=== PATIENT | male | born 1960 | race Hispanic/Latino ===

== ENCOUNTER 2018-08-05 07:01 | Emergency (ER) | payer BC, OTHER ==
[2018-08-05 07:44] LABS: Absolute Lymphocytes (CBC) 1.3 K/uL (0.7-4.9); Absolute Monocytes 0.4 K/uL (0.1-1.3); Basophils % 0.8 % (0-1.3); Eosinophils % 5.5 % (0-4.4); Hematocrit 42.1 % (39.6-49.0); Lymphocytes % 32.6 % (15.3-44.8); MPV 8.9 fL (7.6-11.3); RBC Red Blood Cell Count 4.54 M/uL (4.33-5.43)
[2018-08-05 07:51] LABS: Protime INR 1.05
[2018-08-05 08:05] LABS: ALT/SGPT 35 U/L (12-78); AST/SGOT 19 U/L (15-37); Albumin 4.1 g/dL (3.4-5.0); Alkaline Phosphatase 60 U/L (45-117); BUN Blood Urea Nitrogen 19 mg/dL (7-18); Bicarbonate 29 mmol/L (21-32); Bilirubin Direct 0.2 mg/dL (0-0.2); Bilirubin Total 0.8 mg/dL (0.2-1.0); Glucose Level 96 mg/dL (74-106); Magnesium 2.1 mg/dL (1.8-2.4); NT PRO-BNP 54 pg/mL (<125); Potassium 3.9 mmol/L (3.5-5.1); Protein, Total 7.4 g/dL (6.4-8.2); Sodium Level 142 mmol/L (136-145); Troponin (Emerg Dept Use Only) < 0.02 ng/mL (0.0-0.045)
--- NOTE | 2018-08-05 08:07 | EKG ---
Test Date: 2018-08-05 Test Time: 07:25:15 Senior Property Accountant: CHRISTINE MEASUREMENT RESULTS: Intervals: Rate: 59 AK: 138 QRSD: 86 QT: 428 QTc: 423 Mize: P: 38 AK: 138 QRS: -24 T: 29 INTERPRETIVE STATEMENTS: Sinus bradycardia Otherwise normal ECG No previous ECG available for comparison Electronically Signed On 08-05-18 08:06:29 CAREER RESOURCE SPECIALIST by Jose Alfredo Means
--- NOTE | 2018-08-05 08:29 | RAD REPORT ---
EXAM DESCRIPTION: RAD - Chest Single View - 08/05/2018 7:33 am CLINICAL HISTORY: Shortness of breath COMPARISON: None. TECHNIQUE: AP portable chest image was obtained 0730 hours . FINDINGS: Lungs are clear. Heart and vasculature are normal. No measurable pleural effusion and no p neumothorax. No acute bony abnormality seen. No acute aortic findings suspected. IMPRESSION: No acute cardiopulmonary process.
--- NOTE | 2018-08-05 08:59 | ER ---
Nurse's Notes [facility] Name: Shoaib Rosario Age: 58 yrs Sex: Male : 1960 Arrival Date: 08/05/2018 Time: 07:02 Bed 13 Private MD: Isauro Garcia H Diagnosis: Dizziness;Shortness of breath Presentation: 08/05 07:16 Presenting complaint: Patient states: WOKE UP AND DON'T FEEL WELL. I DON'T FEEL RESTED ls4 AND FELT SHORT OF BREATH. Transition of care: patient was not received from another setting of care. Onset of symptoms was July 30, 2018. Risk Assessment: Do you want to hurt yourself or someone else? Patient reports no desire to harm self or others. Initial Sepsis Screen: Does the patient meet any 2 criteria? No. Patient's initial sepsis screen is negative. Does the patient have a suspected source of infection? No. Patient's initial sepsis screen is negative. Care prior to arrival: None. 07:16 Method Of Arrival: Ambulatory ls4 07:16 Acuity: EFREN 3 ls4 Triage Assessment: 07:19 General: Appears in no apparent distress. Behavior is calm, cooperative. Pain: Denies ls4 pain. Neuro: No deficits noted. Cardiovascular: No deficits noted. Respiratory: Reports shortness of breath since THURSDAY Onset: The symptoms/episode began/occurred gradually, the patient has mild shortness of breath. GI: No deficits noted. : No deficits noted. Derm: No deficits noted. Musculoskeletal: No deficits noted. Historical: - Allergies: 07:19 No Known Allergies; ls4 - Home Meds: 07:19 None [Active]; ls4 - PMHx: 07:19 None; ls4 - PSHx: 07:19 None; ls4 - Immunization history:: Adult Immunizations unknown. - Social history:: Smoking status: Patient/guardian denies using tobacco, never smoked. - Ebola Screening: : Patient negative for fever greater than or equal to 101.5 degrees Fahrenheit, and additional compatible Ebola Virus Disease symptoms Patient denies exposure to infectious person Patient denies travel to an Ebola-affected area in the 21 days before illness onset No symptoms or risks identified at this time. Screenin:25 Abuse screen: Denies threats or abuse. Denies injuries from another. Nutritional ls4 screening: No deficits noted. Tuberculosis screening: No symptoms or risk factors identified. Fall Risk None identified. Assessment: 07:26 General: Appears in no apparent distress. Cardiovascular: Capillary refill < 3 seconds ls4 Patient's skin is warm and dry. Respiratory: Airway is patent Respiratory effort is even, unlabored, Breath sounds are clear bilaterally. Musculoskeletal: No deficits noted. 08:00 Reassessment: Patient appears in no apparent distress at this time. No changes from ls4 previously documented assessment. Patient and/or family updated on plan of care and expected duration. Pain level reassessed. Patient is alert, oriented x 3, equal unlabored respirations, skin warm/dry/pink. 08:15 Cardiovascular: Rhythm is regular. ls4 Vital Signs: 07:19 BP 143 / 78; Pulse 65; Resp 16; Temp 98.4; Pulse Ox 99% on R/A; Pain 0/10; ls4 07:20 BP 143 / 78; Pulse 62; Resp 16 S; Pulse Ox 99% on R/A; Weight 81.65 kg; Height 5 ft. 5 iw in. (165.10 cm); Pain 0/10; 07:58 BP 117 / 57 Supine; Pulse 63; ls4 08:00 BP 106 / 66; Pulse 60; ls4 09:35 BP 115 / 74; Pulse 76; Resp 16; Temp 98.4(O); Pulse Ox 99% on R/A; Pain 0/10; ls4 07:20 Body Mass Index 29.95 (81.65 kg, 165.10 cm) iw ED Course: 07:02 Patient arrived in ED. am2 07:03 Isauro Garcia DO is Private Physician. am2 07:08 Aldo David PA is PHCP. cp 07:08 Kyle Rider MD is Attending Physician. cp 07:11 Brandi Richards, JUSTA is Primary Nurse. ls4 07:19 Triage completed. ls4 07:20 Arm band placed on. iw 07:25 Patient has correct armband on for positive identification. Placed in gown. Bed in low ls4 position. Call light in reach. Side rails up X 1. doper operator on. Pulse ox on. NIBP on. Warm blanket given. 07:26 No provider procedures requiring assistance completed. ls4 07:33 XRAY Chest (1 view) In Process Unspecified. EDMS 07:37 EKG done, by traffic technician. reviewed by Aldo WAGNER. at1 07:39 Initial lab(s) drawn, by me, sent to lab. Inserted saline lock: 20 gauge in right ls4 antecubital area, using aseptic technique. Blood collected. 08:56 Jose Alfredo Means MD is Referral Physician. cp 08:57 Isauro Garcia DO is Referral Physician. cp 09:35 IV discontinued, intact, bleeding controlled, No redness/swelling at site. Pressure ls4 dressing applied. Administered Medications: 09:34 Drug: Aspirin Chewable Tablet 162 mg Route: PO; ls4 09:36 Follow up: Response: No adverse reaction ls4 Outcome: 08:57 Discharge ordered by . cp 09:34 Discharged to home ambulatory, with family. ls4 09:34 Condition: good 09:34 Discharge instructions given to patient, family, Instructed on discharge instructions, follow up and referral plans. medication usage, Demonstrated understanding of instructions, follow-up care, medications. 09:36 Patient left the ED. ls4 Signatures: Dispatcher [employer] EDMS Louise Hollingsworth, RN RN Colleen Palacio, operating engineer EKG Tat1 Aldo David PA PA cp Moreno, Amanda am2 Brandi Richards RN RN ls4
--- NOTE | 2018-08-05 08:59 | EDPHYS ---
Physician Documentation [facility] Name: Shoaib Rosario Age: 58 yrs Sex: Male : 1960 Arrival Date: 08/05/2018 Time: 07:02 Bed 13 Private MD: Isauro Garcia H ED Physician Kyle Rider HPI: 08/05 07:15 This 58 yrs old Male presents to ER via Unassigned with complaints of cp Shortness Of Breath, Dizziness. 07:15 The patient has shortness of breath at rest, that woke him/her from sleep. Onset: The cp symptoms/episode began/occurred 1 week(s) ago. Duration: The symptoms are intermittent. Associated signs and symptoms: Pertinent positives: dizziness, Pertinent negatives: chest pain, productive cough, diaphoresis, fever. Severity of symptoms: in the emergency department the symptoms have resolved and did so just prior to arrival. Historical: - Allergies: 07:19 No Known Allergies; ls4 - Home Meds: 07:19 None [Active]; ls4 - PMHx: 07:19 None; ls4 - PSHx: 07:19 None; ls4 - Immunization history:: Adult Immunizations unknown. - Social history:: Smoking status: Patient/guardian denies using tobacco, never smoked. - Ebola Screening: : Patient negative for fever greater than or equal to 101.5 degrees Fahrenheit, and additional compatible Ebola Virus Disease symptoms Patient denies exposure to infectious person Patient denies travel to an Ebola-affected area in the 21 days before illness onset No symptoms or risks identified at this time. ROS: 07:19 Eyes: Negative for injury, pain, redness, and discharge. cp 07:19 Constitutional: Negative for body aches, chills, fever, poor PO intake. 07:19 ENT: Negative for drainage from ear(s), ear pain, sore throat, difficulty swallowing, difficulty handling secretions. 07:19 Cardiovascular: Negative for chest pain, edema, palpitations. 07:19 Respiratory: Positive for shortness of breath, Negative for cough, orthopnea, wheezing. 07:19 Abdomen/GI: Negative for abdominal pain, nausea, vomiting, and diarrhea, black/tarry stool, rectal bleeding. 07:19 : Negative for urinary symptoms. 07:19 Skin: Negative for cellulitis, rash. 07:19 Neuro: Positive for dizziness, Negative for altered mental status, headache, syncope, near syncope, weakness. 07:19 All other systems are negative. Exam: 07:25 Constitutional: The patient appears in no acute distress, alert, awake, cp non-diaphoretic, non-toxic, well developed, well nourished. 07:25 Head/Face: Normocephalic, atraumatic. Eyes: Pupils equal round and reactive to light, cp extra-ocular motions intact. Lids and lashes normal. Conjunctiva and sclera are non-icteric and not injected. Cornea within normal limits. Periorbital areas with no swelling, redness, or edema. ENT: Nares patent. No nasal discharge, no septal abnormalities noted. Tympanic membranes are normal and external auditory canals are clear. Oropharynx with no redness, swelling, or masses, exudates, or evidence of obstruction, uvula midline. Mucous membranes moist. Neck: Trachea midline, no thyromegaly or masses palpated, and no cervical lymphadenopathy. Supple, full range of motion without nuchal rigidity, or vertebral point tenderness. No Meningismus. Chest/axilla: Normal chest wall appearance and motion. Nontender with no deformity. No lesions are appreciated. Cardiovascular: Regular rate and rhythm with a normal S1 and S2. No gallops, murmurs, or rubs. Normal PMI, no JVD. No pulse deficits. Respiratory: Lungs have equal breath sounds bilaterally, clear to auscultation and percussion. No rales, rhonchi or wheezes noted. No increased work of breathing, no retractions or nasal flaring. Abdomen/GI: Soft, non-tender, with normal bowel sounds. No distension or tympany. No guarding or rebound. No evidence of tenderness throughout. Skin: Warm, dry with normal turgor. Normal color with no rashes, no lesions, and no evidence of cellulitis. Neuro: Awake and alert, GCS 15, oriented to person, place, time, and situation. Cranial nerves II-XII grossly intact. Motor strength 5/5 in all extremities. Sensory grossly intact. Cerebellar exam normal. Normal gait. 07:30 ECG was reviewed by the Attending Physician. cp Vital Signs: 07:19 BP 143 / 78; Pulse 65; Resp 16; Temp 98.4; Pulse Ox 99% on R/A; Pain 0/10; ls4 07:20 BP 143 / 78; Pulse 62; Resp 16 S; Pulse Ox 99% on R/A; Weight 81.65 kg; Height 5 ft. 5 iw in. (165.10 cm); Pain 0/10; 07:58 BP 117 / 57 Supine; Pulse 63; ls4 08:00 BP 106 / 66; Pulse 60; ls4 09:35 BP 115 / 74; Pulse 76; Resp 16; Temp 98.4(O); Pulse Ox 99% on R/A; Pain 0/10; ls4 07:20 Body Mass Index 29.95 (81.65 kg, 165.10 cm) iw MDM: 07:11 Patient medically screened. cp 07:30 Differential diagnosis: CHF exacerbation, Chronic Obstructive Pulmonary Disease cp Myocardial Infarction pneumonia, Pneumothorax pulmonary edema, Pulmonary Embolism Unstable Angina. 08:55 Data reviewed: vital signs, nurses notes, lab test result(s), EKG, radiologic studies, cp plain films. 08:55 Test interpretation: by ED physician or midlevel provider: ECG, plain radiologic cp studies. Counseling: I had a detailed discussion with the patient and/or guardian regarding: the historical points, exam findings, and any diagnostic results supporting the discharge/admit diagnosis, the presence of at least one elevated blood pressure reading (>120/80) during this emergency department visit, lab results, radiology results, the need for outpatient follow up, a glass washer, a family practitioner, to return to the emergency department if symptoms worsen or persist or if there are any questions or concerns that arise at home. Response to treatment: the patient's symptoms have markedly improved after treatment, and as a result, I will discharge patient. 08/05 07:17 Order name: Basic Metabolic Panel; Complete Time: 08:07 cp 08/05 08:07 Interpretation: Normal except: CL 108; BUN 19; GFR 70. cp 08/05 07:17 Order name: CBC with Diff; Complete Time: 08:07 cp 08/05 08:07 Interpretation: Normal except: WBC 3.9; EOSINOPHIL % 5.5. cp 08/05 07:17 Order name: LFT's; Complete Time: 08:07 cp 08/05 07:17 Order name: Magnesium; Complete Time: 08:07 cp 08/05 07:17 Order name: NT PRO-BNP; Complete Time: 08:07 cp 02 08:07 Interpretation: Within normal limits: NT PRO-BNP 54. cp 08/05 07:17 Order name: PT-INR; Complete Time: 08:14 cp 08/05 08:14 Interpretation: Reviewed. cp 08/05 07:17 Order name: Troponin (emerg Dept Use Only); Complete Time: 08:07 cp 08/05 08:07 Interpretation: TROPED < 0.02; Reviewed. cp 08/05 07:17 Order name: XRAY Chest (1 view); Complete Time: 08:38 cp 08/05 08:42 Interpretation: Report review. cp 08/05 07:17 Order name: EKG; Complete Time: 07:17 cp 08/05 07:17 Order name: Cardiac monitoring; Complete Time: 07:21 cp 08/05 07:17 Order name: EKG - Nurse/Tech; Complete Time: 07:28 cp 08/05 07:17 Order name: IV Saline Lock; Complete Time: 07:38 cp 08/05 07:17 Order name: Labs collected and sent; Complete Time: 07:38 cp 08/05 07:17 Order name: O2 Per Protocol; Complete Time: 07:28 cp 08/05 07:17 Order name: O2 Sat Monitoring; Complete Time: 07:28 cp 08/05 07:17 Order name: Orthostatics; Complete Time: 08:04 cp EC:30 Rate is 59 beats/min. Rhythm is regular. OR interval is normal. QRS interval is normal. cp QT interval is normal. T waves are Flattened in lead III. Interpreted by me. Reviewed by me. Administered Medications: 09:34 Drug: Aspirin Chewable Tablet 162 mg Route: PO; ls4 09:36 Follow up: Response: No adverse reaction ls4 Disposition: 08/05/18 08:57 Discharged to Home. Impression: Dizziness, Shortness of breath. - Condition is Stable. - Discharge Instructions: Dizziness, Shortness of Breath, Aspirin and Your Heart. - Medication Reconciliation Form, Thank You Letter, Antibiotic Education, Prescription Opioid Use, Work release form form. - Follow up: Jose Alfredo Means MD; When: 1 - 2 days; Reason: Recheck today's complaints. Follow up: Isauro Garcia DO; When: Tomorrow; Reason: Recheck today's complaints. - Problem is new. - Symptoms are resolved. - Notes: take daily 81 mg aspirin Addendum: 08/06/2018 12:38 Co-signature as Attending Physician, Kyle Rider MD I agree with the assessment and w a plan of care. Signatures: Dispatcher [employer] EDMS Aldo David PA PA cp Appiah, William, MD MD wa Stewart, Lisa RN RN ls4 Corrections: (The following items were deleted from the chart) 08/05 09:36 08:57 08/05/2018 08:57 Discharged to Home. Impression: Dizziness; Shortness of breath. ls4 Condition is Stable. Forms are Medication Reconciliation Form, Thank You Letter, Antibiotic Education, Prescription Opioid Use. Follow up: Jose Alfredo Means; When: 1 - 2 days; Reason: Recheck today's complaints. Follow up: Isauro Garcia; When: Tomorrow; Reason: Recheck today's complaints. Problem is new. Symptoms are resolved. cp
[2018-08-05] MEDS ORDERED: ASPIRIN 81 MG CHEWABLE TABLET ONE (09:35)
== END 2018-08-05 09:36 | disposition home or self-care (01) ==
LOC: ER 07:01
DX: R06.02 Shortness of breath (principal)
CPT/HCPCS: 36415; 71045; 80048; 80076; 83735; 83880; 84484; 85025; 85610; 93005; 99284